=== PATIENT | female | born 1995 | race Caucasian/White ===

== ENCOUNTER 2018-05-20 01:18 | Emergency (ER) | payer OTHER ==
[2018-05-20 02:31] LABS: PLATELET COUNT 275 10^3/uL (150-400)
--- NOTE | 2018-05-20 02:36 | EDPHY ---
H & P Stated Complaint: sob and christian after hike today, [place] Time Seen by Provider: 05/20/18 01:28 HPI/ROS: HPI The patient presents with chest pain which began tonight while she was trying to go to sleep. She describes diffuse aching pain which is worse with a deep breath has been constant. She recently arrived here from [place] on an airplane. She does not have any shortness of breath. She does not have any pain or swelling. She does OCPs. She went on a hike today generally well.. REVIEW OF SYSTEMS 10 systems were reviewed and negative with the exception of the elements mentioned in the history of present illness. PMHx: Healthy, history of anxiety Soc Hx: Here with her boyfriend, visiting from [place] PHYSICAL General Appearance: Alert, no distress Eyes: Pupils equal and round no pallor or injection ENT, Mouth: Mucous membranes moist Respiratory: There are no retractions, lungs are clear to auscultation Cardiovascular: Regular rate and rhythm Gastrointestinal: Abdomen is soft and non-tender, no masses, bowel sounds normal Neurological: A&O, moves all extremities Skin: Warm and dry, no rashes Musculoskeletal: Neck is supple non tender Extremities: symmetrical, full range of motion Psychiatric: Patient is oriented X 3, there is no agitation Source: Patient Exam Limitations: No limitations - Personal History LMP (Females 10-55): 15-21 Days Ago Current Tetanus Diphtheria and Acellular Pertussis (TDAP): Unsure - Medical/Surgical History Other PMH: anxiety,depression,add - Social History Smoking Status: Never smoked Constitutional: Initial Vital Signs Temperature (C) 36.8 C 05/20/18 01:22 Heart Rate 95 05/20/18 01:22 Respiratory Rate 16 05/20/18 01:22 Blood Pressure 136/82 H 05/20/18 01:22 O2 Sat (%) 96 05/20/18 01:22 O2 Delivery Mode Room Air Allergies/Adverse Reactions: sulfamethoxazole [From Bactrim] Allergy (Verified 05/20/18 01:21) trimethoprim [From Bactrim] Allergy (Verified 05/20/18 01:21) Home Medications: Medication Instructions Recorded Adderall 20 mg (*) 05/20/18 Control 05/20/18 Lexapro 05/20/18 Medical Decision Making - Diagnostics EKG Interpretation: EKG: Complete interpretation has been separately recorded in the [facility] archive. Summary impression: Normal sinus rhythm Differential Diagnosis: This is a 23-year-old relatively healthy female who presents from home with chest pain which is pleuritic which began while trying to sleep tonight. She recently had an airplane ride and takes OCPs which raises suspicion for pulmonary embolism. However, patient has normal vital signs and is generally well-appearing. Would also consider mild altitude sickness, pericarditis, anemia. In the emergency department EKG and basic labs including D-dimer were performed. These were negative. Patient felt well enough to go home. I have encouraged plenty of p.o. Fluids as well as ibuprofen as needed. - Data Points Laboratory Results: Laboratory Results 05/20/18 02:24 05/20/18 02:24 Departure - Departure Disposition: Home, Routine, Self-Care Clinical Impression: Chest wall pain Condition: Good Instructions: Chest Wall Pain (ED) Additional Instructions: I recommend you take ibuprofen 400 mg every 6 hr as needed for any headache or pain in her chest. Please return to the emergency department if your worse in any way. Referrals: BEREKET COSTA [Other] - As per Instructions
[2018-05-20 02:52] VITALS: BP 123/74
--- NOTE | 2018-05-21 05:34 | CPEKG ---
Test Reason : OPEN Blood Pressure : / mmHG Vent. Rate : 081 BPM Atrial Rate : 079 BPM P-R Int : 154 ms QRS Dur : 080 ms QT Int : 340 ms P-R-T Axes : 028 012 -11 degrees QTc Int : 395 ms Sinus rhythm Low voltage, precordial leads Nonspecific T abnormalities, diffuse leads Confirmed by Zee Fernández ([id number]) on 05/21/2018 5:33:53 AM Referred By: Zee Fernández Confirmed By:Zee Fernández
== END 2018-05-20 02:51 | disposition home or self-care (01) ==
DX: R07.89 Other chest pain (principal)